=== PATIENT | male | born 1985 | race Caucasian/White ===

== ENCOUNTER 2018-04-19 12:12 | Emergency (ER) | payer OTHER ==
[~2018-04-19] VITALS: Ht 188 cm; Wt 85.0 kg
[2018-04-19 13:49] VITALS: BP 118/74
== END 2018-04-19 13:52 | disposition home or self-care (01) ==
LOC: ED 13:46
DX: S16.1XXA Strain of muscle, fascia and tendon at neck level, initial encounter (principal); V59.59XA Passenger in pick-up truck or van injured in collision with other motor vehicles in traffic accident, initial encounter; Y93.89 Activity, other specified; Y92.89 Other specified places as the place of occurrence of the external cause; Y99.8 Other external cause status
CPT/HCPCS: 72125; 99284